=== PATIENT | male | born 2000 | race Caucasian/White ===

== ENCOUNTER 2023-10-17 05:09 | Inpatient (IN) | payer MEDICAID ==
[2023-10-17 06:10] LABS: GLUCOMETER DEV NAME(LOC) POC.BV; POC SARS-COV2 AG, FIA NEGATIVE (NEGATIVE)
[2023-10-17] MEDS ORDERED: ZOLPIDEM TARTRATE 10 MG TABLET PO PRN (07:15)
[2023-10-17] MEDS ORDERED: TUBERCULIN, PURIFIED PROTEIN DERIVATIVE 5 TU/0.1 ML SYRINGE ID ONE (07:15)
[2023-10-17] MEDS ORDERED: HydrOXYzine PAMOATE 50 MG CAPSULE PO PRN (07:15)
[2023-10-17] MEDS ORDERED: PROMETHAZINE HCL 25 MG TABLET PO PRN (07:15)
[2023-10-17] MEDS ORDERED: LOPERAMIDE HCL 2 MG CAPSULE PO PRN (07:15)
[2023-10-17] MEDS ORDERED: LORazepam 2 MG TABLET PO PRN (07:15)
[2023-10-17] MEDS ORDERED: ACETAMINOPHEN 325 MG TABLET PO PRN (07:15)
[2023-10-17] MEDS ORDERED: GuaiFENesin/D-METHORPHAN [SUGAR-FREE] 200-20MG/10 ML SYRUP UDCUP PO PRN (07:15)
[2023-10-17] MEDS ORDERED: MAG HYDROX/ALUMINUM HYD/SIMETH ES 30 ML SUSPENSION UDCUP PO PRN (07:15)
[2023-10-17] MEDS ORDERED: OLANZapine 5 MG RAPDIS TABLET PO PRN (07:15)
[2023-10-17] MEDS ORDERED: MAGNESIUM HYDROXIDE SUSPENSION 30 ML UDCUP PO PRN (07:15)
[2023-10-17 08:59] VITALS: BP 126/60; PULSE 67; RESP 18; TEMP 98; O2SAT 100
[2023-10-17] MEDS: OMEGA-3/DHA/EPA/FISH OIL 1,000 MG CAPSULE PO SCH (10:20)
[2023-10-17] MEDS: MULTIVITAMINS WITH MINERALS, THERAPEUTIC TABLET PO SCH (10:20)
[2023-10-17] MEDS: FLUoxetine HCL 20 MG CAPSULE PO SCH (10:20)
[2023-10-17] MEDS: THIAMINE 100 MG TABLET PO SCH (10:20)
[2023-10-17] MEDS: FOLIC ACID 1 MG TABLET PO SCH (10:21)
[2023-10-17] MEDS: MELATONIN 5 MG TABLET PO SCH (20:29)
[2023-10-17 20:50] VITALS: BP 133/91; PULSE 53; RESP 18; TEMP 97.6; O2SAT 99
[2023-10-17] MEDS ORDERED: MELATONIN 5 MG TABLET PO SCH (21:00)
[2023-10-17] MEDS ORDERED: OLANZapine 5 MG RAPDIS TABLET PO SCH (21:00)
[2023-10-18 08:12] LABS: EOSINOPHILS % (AUTO) 4.7 % (1.0-6.0); HEMATOCRIT 43.9 % (41-53); HEMOGLOBIN 14.8 g/dL (13.5-17.5); LYMPHOCYTES # (AUTO) 1.6 K/uL (1.0-4.8); LYMPHOCYTES % (AUTO) 28.7 % (22.0-44.0); MEAN CORPUSCULAR HEMOGLOBIN 29.4 pg (26.0-34.0); MEAN CORPUSCULAR HGB CONC 33.8 G/dL (31.0-37.0); MEAN CORPUSCULAR VOLUME 87 fL (80-100); MONOCYTES # (AUTO) 0.7 K/uL (0.1-1.0); MONOCYTES % (AUTO) 12.4 % (2.0-9.0); NEUTROPHILS % (AUTO) 53.2 % (40.0-70.0); PLATELET COUNT (AUTO) 173 K/uL (150-450); RED BLOOD CELL COUNT(AUTO) 5.05 MIL/uL (4.50-5.90); RED CELL DISTRIBUTION WIDTH 13.7 % (11.5-14.5); WHITE BLOOD COUNT (AUTO) 5.6 K/uL (4.5-11.0)
[2023-10-18 08:28] LABS: HEMOGLOBIN A1C 4.8 % (3.8-5.6)
[2023-10-18 08:35] VITALS: BP 114/75; PULSE 66; RESP 18; TEMP 96.8; O2SAT 98
[2023-10-18 08:43] LABS: ALANINE AMINOTRANSFERASE 25 U/L (12-78); ALBUMIN 3.2 g/dL (3.4-5.0); ALKALINE PHOSPHATASE 57 U/L (46-116); ANION GAP 4 mmol/L (8-16); ASPARTATE AMINOTRANSFERASE 19 U/L (15-37); BILIRUBIN,TOTAL 0.8 mg/dL (0.1-1.0); CALCIUM, TOTAL 8.9 mg/dL (8.8-10.5); CARBON DIOXIDE 32 mmol/L (22-29); CHLORIDE 106 mmol/L (98-107); CHOL/HDL RATIO 2.2 (4.2-7.3); CHOLESTEROL 117 mg/dL (131-200); CREATININE 0.84 mg/dL (0.60-1.30); FREE T4 (FREE THYROXINE) 1.03 ng/dL (0.76-1.46); GLOMERULAR FILTR. RATE CALC > 60 mL/min (>60); GLUCOSE,RANDOM 84 mg/dL (70-110); HDL CHOLESTEROL 54 mg/dL (40-60); LDL CHOL (CALC.) 54 mg/dL (0-130); POTASSIUM 4.1 mmol/L (3.5-5.1); SODIUM SERUM 142 mmol/L (136-145); THYROID STIMULATING HORMONE 0.56 uIU/mL (0.36-3.74); TOTAL PROTEIN, SERUM 6.6 g/dL (6.4-8.2); TRIGLYCERIDES 43 mg/dL (15-150); UREA NITROGEN, BLOOD 16 mg/dL (7-18)
[2023-10-18] MEDS: BuPROPion HCL XL 150 MG ER TABLET PO SCH (08:48)
[2023-10-18] MEDS ORDERED: OMEG-135 PO (15:21)
[2023-10-18] MEDS ORDERED: LURA20TA PO (15:21)
[2023-10-18] MEDS ORDERED: MELA5TAB40 PO (15:21)
[2023-10-18] MEDS ORDERED: BUPR-514 PO (15:21)
[2023-10-18] MEDS: LURASIDONE HCL 20 MG TABLET PO SCH (17:32)
[2023-10-18 22:07] VITALS: BP 124/60; PULSE 61; RESP 19; TEMP 96.7; O2SAT 99
[2023-10-19 08:09] VITALS: BP 110/61; PULSE 64; RESP 17; TEMP 97.4; O2SAT 96
[2023-10-19 09:38] VITALS: BP 110/61; PULSE 64; RESP 18; TEMP 97.4; O2SAT 96
== END 2023-10-19 12:00 | disposition home or self-care (01) | DRG 750 ==
LOC: B2S 06:10
PROVIDERS: ADMIT Psychiatry & Neurology Psychiatry; ATTEND Psychiatry & Neurology Psychiatry
PROC: GZHZZZZ Group Psychotherapy (ICD-10-PCS; principal; 2023-10-17)
PROC: GZ58ZZZ Individual Psychotherapy, Cognitive-Behavioral (ICD-10-PCS; 2023-10-17)
DX: F25.9 Schizoaffective disorder, unspecified (principal); R45.851 Suicidal ideations; F32.A Depression, unspecified; F90.9 Attention-deficit hyperactivity disorder, unspecified type; F84.0 Autistic disorder; Z20.822 Contact with and (suspected) exposure to COVID-19; Z63.9 Problem related to primary support group, unspecified; Z65.3 Problems related to other legal circumstances; Z59.00 Homelessness unspecified
CPT/HCPCS: 80053; 80061; 83036; 84439; 84443; 85025; 86592; 36415-L1; 36415-TC; Z7610